=== PATIENT | female | born 1985 | race Caucasian/White ===

== ENCOUNTER 2020-06-08 06:42 | Inpatient (IN) ==
--- NOTE | 2020-06-01 13:50 | Anesthesiology Consultation ---
Date of Service June 01, 2020 Assessment & Plan (1) Encounter for pre-operative examination: Per PAT assessment on 06/01: Travel screen- Lives in [facility]. Wears mask in public. No known COVID-19 positive contacts. No current COVID-19 related symptoms. Patient scheduled for preop protocol COVID-19 testing on 06/06 ([facility] Awaiting results. - Suboxone use: Case reviewed with Dr. Vasquez. Recommend patient continue suboxone as directed perioperatively. T/C TAP block. He states he will review case with Dr. Gold who will be anesthesiologist scheduled for DOS. - *Claustrophobic* Chart Review Chart Review: Acceptable Risk for Surgery (pending preop labs) and Patient seen in Pre Admission Testing Teaching & Discussion Pre-Anesthesia Teaching/Discussion Notes: Instructed NPO after midnight before surgery,except medications with 15 cc of water. Medication instructions provided according to the PAT guidelines. History Surgery Operation Date: 06/08/20 07:30 Proposed Procedures p Section in LD - Re Levi MD s Bilateral Tubal Ligation in L&D, Possible Blood Transfusion - Re Brantley MD Height/Weight Height: 5 ft 7.5 in Weight: 103.419 kg Allergies Allergy/AdvReac Type Severity Reaction Status Date / Time No Known Allergies Allergy . Verified 06/01/20 09:05 Medications Home Medications Medication Instructions Recorded Confirmed Last Taken sertraline 150 mg PO USEASDIRECTD 03/15/20 06/01/20 Unknown buprenorphine HCl 8 mg SUBLINGUAL UD 05/20/20 06/01/20 05/20/20 09:30 nicotine 21 mg TOPICAL 3XWK 05/20/20 06/01/20 Unknown PNV cmb#95-ferrous fumarate-FA 1 tab PO DAILY 06/01/20 06/01/20 Unknown [] albuterol sulfate 1 inh INHALATION QID PRN 06/01/20 06/01/20 Unknown ferrous sulfate 325 mg PO TID 06/01/20 06/01/20 Unknown Past Medical History Medical History Anemia Anxiety and depression Post traumatic stress disorder Exercise / Class Metabolic Activity III < 4 Walking/Shop/Light housework Past Family History Family History Grandmother (Maternal) Family history of diabetes mellitus Past Surgical History Surgical History (Updated 06/01/20 @ 14:57 by Gayatri Gambino) History of section (d/t distress): 04/16/09: dosed epidural Repeat : 10/25/16: SAB x1 attempt at L3-L4 History of tooth extraction Past Anesthesia History No Hx of Anesthesia Complications and No Family Hx of Anesthesia Complications History of PONV No Hx of PONV and Hx of Motion Sickness Social History Smoking Status: Current every day smoker tobacco type: cigarettes Smoking cigarettes per day: 10-15 CIG DAILY Do You Dip or Chew Tobacco: No Hx Alcohol Use: No Hx Substance Use: Yes (on suboxone daily (hx of opiod dependence) ) Review of Systems Patient denies chest pain, shortness of breath fever, chills, reflux, cough, wheezing, palpitations. Testing Laboratory Results 05/20/20 SODIUM 136 POTASSIUM 3.6 CHLORIDE 105 CO2 24 BUN 8 CREATININE 0.69 GLUCOSE 115 PT 10.1 PTT 26.8 INR 1.0 03/15/20 T&S A-Ab- Electrocardiogram Date: 05/20/20 NSR at 92bpm. Poor data quality* Chest X-Ray Date: 03/15/20 Findings: + NAD
--- NOTE | 2020-06-01 13:53 | PAT Medication Instructions ---
Medication Instructions Date of Service June 01, 2020 Home Medications sertraline 150 mg PO USEASDIRECTD buprenorphine HCl 8 mg SUBLINGUAL UD nicotine 21 mg TOPICAL 3XWK PNV cmb#95-ferrous fumarate-FA [] 1 tab PO DAILY albuterol sulfate 1 inh INHALATION QID PRN ferrous sulfate 325 mg PO TID Continue as directed nicotine 21 mg TOPICAL 3XWK DO NOT take the morning of surgery PNV cmb#95-ferrous fumarate-FA [] 1 tab PO DAILY ferrous sulfate 325 mg PO TID Take morning of surgery With a small sip of water, OTHERWISE NOTHING TO EAT OR DRINK AFTER MIDNIGHT: sertraline 150 mg PO USEASDIRECTD buprenorphine HCl 8 mg SUBLINGUAL UD albuterol sulfate 1 inh INHALATION QID PRN (use if needed; please bring with you to hospital day of surgery if possible) Take evening before surgery albuterol sulfate 1 inh INHALATION QID PRN (if needed) ferrous sulfate 325 mg PO TID Other Notes If you have any questions please call us at [phone] or [phone] or or [phone]
[2020-06-01 16:15] LABS: Appearance Urine Clear (Clear); Bilirubin Urine Negative (Negative); Blood Urine Negative (Negative); Color Urine Dark Yellow; Glucose Urine UA Negative (Negative); Ketones Urine Negative (Negative); Leukocyte Esterase Urine Negative (Negative); Nitrite Urine Negative (Negative); Protein Urine Negative (Negative); Specific Gravity Urine 1.031 (1.000-1.030); Urobilinogen Urine Negative (Negative)
[2020-06-01 16:43] LABS: Anisocytosis Present; Basophils # (auto) 0.05 K/uL (0-0.2); Basophils % (auto) 0.3 %; Eosinophils % (auto) 1.1 %; Hematocrit (blood only) 29.8 % (37-47); Hemoglobin 8.5 g/dL (12.0-16.0); Immature Granulocytes # (auto) 0.19 K/uL (0.00-0.02); Lymphocytes # (auto) 3.01 K/uL (1.2-3.4); Lymphocytes % (auto) 16.4 %; Mean Corpuscular Hemoglobin 20.1 pg (25-34); Mean Corpuscular Hgb Conc 28.5 g/dL (32-36); Mean Corpuscular Volume 70.6 fL (80-100); Monocytes # (auto) 1.55 K/uL (0.11-0.59); Monocytes % (auto) 8.4 %; Neutrophils # (auto) 13.38 K/uL (1.4-6.5); Neutrophils % (auto) 72.8 %; Nucleated RBC # (auto) 0.19 K/uL (0-0); Platelet Count 240 K/uL (130-400); RDW Coefficient of Variation 24.9 % (11.5-14.5); RDW Standard Deviation 50.9 fL (36.4-46.3); Red Blood Count 4.22 M/uL (4.2-5.4); Schistocytes 1+; Spherocytes 1+; White Blood Count 18.38 K/uL (4.8-10.8)
[~2020-06-08 06:42] MED LIST: CEFAZOLIN 3,000 MG in DEXTROSE 5% 50 ML IV SCH; CITRIC ACID/SODIUM CITRATE 15 ML UDC PO SCH; LACTATED RINGER'S 1,000 ML IV SCH
[2020-06-08] MEDS ORDERED: SODIUM CHLORIDE 0.9% 250 ML IV PRN (06:44)
[2020-06-08] MEDS ORDERED: LACTATED RINGER'S 1,000 ML IV SCH ×2 (06:45→09:45)
[2020-06-08 07:19] LABS: Basophils # (auto) 0.04 K/uL (0-0.2); Basophils % (auto) 0.3 %; Eosinophils % (auto) 1.4 %; Hematocrit (blood only) 34.8 % (37-47); Hemoglobin 10.3 g/dL (12.0-16.0); Immature Granulocytes # (auto) 0.09 K/uL (0.00-0.02); Immature Granulocytes % (auto) 0.6 %; Lymphocytes # (auto) 2.72 K/uL (1.2-3.4); Lymphocytes % (auto) 18.8 %; Mean Corpuscular Hemoglobin 22.4 pg (25-34); Mean Corpuscular Volume 75.7 fL (80-100); Monocytes # (auto) 1.25 K/uL (0.11-0.59); Monocytes % (auto) 8.6 %; Neutrophils # (auto) 10.16 K/uL (1.4-6.5); Neutrophils % (auto) 70.3 %; Platelet Count 259 K/uL (130-400); RDW Coefficient of Variation 33.3 % (11.5-14.5); RDW Standard Deviation 85.5 fL (36.4-46.3); White Blood Count 14.46 K/uL (4.8-10.8)
[2020-06-08 07:24] LABS: Mean Corpuscular Hgb Conc 29.6 g/dL (32-36)
[2020-06-08 07:38] LABS: Anisocytosis Present
[2020-06-08] MEDS ORDERED: MoRPHine SULFATE PF 1 MG/ML 10 ML AMP/VIAL ONE (07:55)
[2020-06-08] MEDS ORDERED: fentaNYL citrate 100 MCG/2 ML VIAL ONE (07:55)
--- NOTE | 2020-06-08 07:55 | History & Physical Bridge Note ---
Date of Service June 08, 2020 History & Physical Bridge Note I have examined the patient, reviewed the History & Physical and in the interval since the performance of the History & Physical I have noted the following changes of clinical significance: no changes noted Reports good movements Still desires tubal sterilization
[2020-06-08 08:11] LABS: Rubella IgG Antibody Immune (Immune)
[2020-06-08 08:12] LABS: Hepatitis B Surface Antigen Neg (Neg)
[2020-06-08] MEDS ORDERED: KETOROLAC 30 MG/ML VIAL ONE (08:59)
[2020-06-08] MEDS ORDERED: OXYTOCIN 10 UNITS/ML VIAL ONE (09:23)
[2020-06-08] MEDS ORDERED: ONDANSETRON INJ 2 MG/ML 2 ML VIAL ONE (09:24)
[2020-06-08] MEDS ORDERED: PHENYLEPHRINE 100MCG/ML 5ML SYR ONE (09:24)
[2020-06-08] MEDS ORDERED: BENZOCAINE 20% AER SPR 82.5 GM CAN EXT PRN (09:42)
[2020-06-08] MEDS ORDERED: MEASLES, MUMPS & RUBELLA VIRUS VIAL SQ ONE (09:42)
[2020-06-08] MEDS ORDERED: HYDROCORTISONE ACETATE 25 MG SUPP PR PRN (09:42)
[2020-06-08] MEDS ORDERED: DIPHTHERIA/TETANUS/PERTUSSIS 0.5 ML SYR/VIAL IM ONE (09:42)
[2020-06-08] MEDS ORDERED: SUPERCREAM 0.870% 15 GM JAR EXT PRN (09:42)
[2020-06-08] MEDS ORDERED: SENNA 8.6 MG TAB PO PRN (09:42)
[2020-06-08] MEDS ORDERED: MAGNESIUM HYDROXIDE SUSP 30 ML UDC PO PRN (09:42)
--- NOTE | 2020-06-08 09:42 | Post Operative Brief Note ---
Immediate Post Op Note v1 Date of Surgery June 08, 2020 Pre & Post Diagnosis Operation Date: 06/08/20 07:30 Pre-Op Diagnosis: History of Prior Two Deliveries Post-Op Diagnosis: Same; Delivery of a live male child at 0846 I identified the patient and participated in the time-out.: Yes Procedure Operation Date: 06/08/20 07:30 Actual Procedures p Section; - Re Levi MD s Bilateral Tubal Ligation, Possible Blood Transfusion - Re Levi MD Surgeon Re Levi MD Hot Plate Press Operator Dr Bey Estimated Blood Loss 600 Findings Consistent with Post-Op Diagnosis Drains Hernandez Catheter Anesthesia Type Spinal Complications none Disposition Accompanied Patient To Recovery: Yes Disposition: L&D
--- NOTE | 2020-06-08 09:42 | History & Physical Bridge Note ---
Date of Service June 08, 2020 History & Physical Bridge Note I have examined the patient, reviewed the History & Physical and in the interval since the performance of the History & Physical I have noted the following changes of clinical significance: no changes noted
[2020-06-08] MEDS ORDERED: HYDROmorphone INJ 0.5 MG/0.5 ML SYR IV PRN ×2 (09:58→12:18)
[2020-06-08] MEDS ORDERED: MoRPHine SULFATE PF 1 MG/ML 10 ML AMP/VIAL INT SPINAL ONE (09:58)
[2020-06-08] MEDS ORDERED: NALOXONE HCL 0.4 MG/1 ML VIAL/CARP IV PRN (09:58)
[2020-06-08] MEDS ORDERED: NALOXONE HCL 0.08 MG in SYRINGE 1.8 ML IV PRN (09:58)
[2020-06-08] MEDS ORDERED: NALOXONE HCL 1 MG in SODIUM CHLORIDE 0.9% 1000ML 1,000 ML IV PRN (09:58)
[2020-06-08] MEDS ORDERED: ePHEDrine sulfate 50 MG/ML AMP IV PRN (09:58)
[2020-06-08] MEDS ORDERED: ONDANSETRON INJ 2 MG/ML 2 ML VIAL IV PRN (09:58)
[2020-06-08] MEDS ORDERED: DiphenhydrAMINE HCL 50 MG/ML VIAL IV PRN (09:58)
[2020-06-08] MEDS ORDERED: LACTATED RINGER'S 500 ML IV PRN (09:58)
[2020-06-08] MEDS ORDERED: NO NARCOTICS OR SEDATIVES SCH (10:00)
[2020-06-08] MEDS ORDERED: SODIUM CHLORIDE 0.9% 1000ML 1,000 ML IV SCH (10:00)
[2020-06-08] MEDS ORDERED: DC INTRASPINAL MORPHINE SCH (10:00)
--- NOTE | 2020-06-08 10:08 | Anesthesiology Progress Note ---
Date of Service June 08, 2020 Anesthesia Post Procedure Vital Signs Vital Signs: Temp Pulse Pulse Resp BP BP Pulse Ox 06/08/20 10:05 73 114/77 98 06/08/20 10:00 76 98 06/08/20 09:57 78 120/63 06/08/20 09:55 83 97 06/08/20 09:50 80 100 06/08/20 09:45 78 100 06/08/20 09:44 79 124/64 06/08/20 07:35 36.6 C 89 20 128/82 06/08/20 07:03 89 128/82 Transfer of Care Handoff Completed per policy Notes Mental Status: alert / awake / arousable and participated in evaluation Nausea / Vomiting: adequately controlled Pain: adequately controlled Airway Patency, RR, SpO2: stable & adequate BP & HR: stable & adequate Hydration State: stable & adequate Neuraxial Anesthesia: was administered and sensory block is resolving Anesthetic Complications: no major complications apparent and Pt Satisfied with anesthetic care
--- NOTE | 2020-06-08 11:47 | Operative Report (OR) ---
DATE OF OPERATION: 06/08/2020 PREOPERATIVE DIAGNOSES: The patient is a 35-year-old 3, para 2-0-0-2, at 39 weeks and 1 day of gestation with history of prior 2 sections, multiparity, desires permanent sterilization. POSTOPERATIVE DIAGNOSES: The patient is a 35-year-old 3, para 2-0-0-2, at 39 weeks and 1 day of gestation with history of prior 2 sections, multiparity, desires permanent sterilization. PROCEDURE: Repeat low transverse with Pfannenstiel skin incision and lysis of adhesions and bilateral tubal ligation with Whitehall method. SURGEON: Re Levi MD. VIBRATORY PILE DRIVER: Ronald Bey MD. ESTIMATED BLOOD LOSS: 600 mL. FLUIDS: 850 mL of lactated Ringer. DRAINS: Hernandez catheter drained 150 mL of clear urine. ANESTHESIA: Spinal. ANESTHESIOLOGIST: Dr. Gold. COMPLICATIONS: None. FINDINGS: Baby was a viable male delivered in cephalic presentation at 08:46 a.m. Apgars were 9/9, weight is 3355 grams. Maternal findings: There was adhesion, omentum was attached to the anterior abdominal wall of the peritoneum and some scarring in the subcuticular tissue and fascia. The uterus, fallopian tubes, ovaries were normal. DESCRIPTION OF PROCEDURE: The patient was taken to the operating room where spinal anesthesia was given without difficulty. She was placed in dorsal supine position with a leftward tilt. She was prepared and draped in the usual sterile fashion. A Pfannenstiel skin incision was made and carried through to the underlying layer of fascia with the Bovie. Fascia was incised in the midline and incision was extended laterally with the help of Ellis scissors. There was an opening/ window between rectus muscles/ on the peritoneum in the middle of the fascial incision on the lower side and the omentum was protruding from there. Lower fascial edge was grasped with 2 Sofía clamps, elevated. The rectus muscles were dissected off bluntly and sharply with Ellis scissors. Attention was made yevgeniy there were no loops of bowels behind and the ometum was gently retracted from the field. Upper aspect of the fascial incision was then grasped with 2 Sofía clamps, elevated, underlying rectus muscles were dissected sharply and bluntly, and the rectus muscles were already in the midline. The peritoneal incision was extended superiorly and inferiorly with good visualization of the bladder and attention was made that there was no bowel underlying it. Omentum was detached from the anterior abdominal wall with the tip of Bovie and it was hemostatic. A bladder blade was inserted. Vesicouterine peritoneum was identified, grasped with pickups and entered sharply with Metzenbaum scissors and a bladder flap was created digitally and bladder blade was reinserted. Lower uterine segment was incised in transverse fashion, incision was extended laterally with the help of fingers. Membranes were ruptured. Clear fluid was obtained. Baby's head was delivered without difficulty. Shoulders were delivered with minimal traction. Mouth and nose were suctioned. Cord was clamped x2 and cut at 1 minute delay. Cord blood was obtained. Placenta was delivered manually as intact and complete. Uterus was exteriorized, cleared of all clots and debris. The uterine incision was repaired with 0 Vicryl in a running locked fashion and a second imbricating layer was placed with a 0 Vicryl in a running locked fashion. Excellent hemostasis was achieved. Attention was turned to the right fallopian tube. It was held with 2 Payson clamps and the mesosalpinx was entered with a 2-0 plain catgut needle in the avascular section. The cord was tied around the Payson and a loop was made and the second tie was placed under the first tie and cut and then the fallopian tube was incised, about 3 cm length was excised and sent to pathology. Good hemostasis was achieved. Attention was turned to the left fallopian tube, which was also grasped with 2 Josef clamps, elevated, and the mesosalpinx was entered from the avascular site with 2-0 plain catgut. The tube was tied and a loop was made around the clamp and then a second tie was placed under the first tie and then again 3 cm length of fallopian tube was excised and sent to pathology, and excellent hemostasis was achieved. The uterine incision was checked again and it was hemostatic. Uterus was returned to the abdomen. The pelvis was irrigated with warm normal saline and suctioned, and incision was checked to be hemostatic again and fallopian tubes were checked to be hemostatic. In parietal peritoneum, there was another adhesion on the omental side. It was also incised with the tip of Bovie from the peritoneum and it was hemostatic. It was returned to the abdomen. The parietal peritoneum was reapproximated with 3-0 Vicryl in a running fashion and the rectus muscles were reapproximated with the same suture in a running fashion. Excellent hemostasis was achieved under the fascia, and over the rectus muscles. The rectus fascia was reapproximated with 0 Vicryl starting from both corners meeting in the midline, and the subcuticular fat tissue was brought together with 3-0 Vicryl in a running fashion. Skin was closed in a subcuticular fashion with 4-0 Monocryl. Mom and baby tolerated the procedure well. No complications happened. I was present and Dr. Bey was present during whole procedure. Sponge, lap, needle count was correct x3. She was taken to recovery room in stable condition. My nutrition assistant was necessary throughout the procedure for uterine manipulation, handling of instruments to ensure adequate visualization, gentle tissue manipulation and hemostasis. I attest to the content of the Intraoperative Record and any orders documented therein. Any exceptions are noted below. REGULO
[2020-06-08] MEDS: OXYTOCIN 20 UNITS in LACTATED RINGER'S 1,000 ML IV SCH ×2 (11:51→21:09)
[2020-06-08] MEDS ORDERED: HYDROmorphone INJ 0.5 MG/0.5 ML SYR IV STA (12:18)
[2020-06-08] MEDS ORDERED: ACETAMINOPHEN 1000 MG/100 ML IV IV SCH ×2 (12:30→14:00)
[2020-06-08] MEDS: ACETAMINOPHEN 1,000 MG/100 ML VIAL IV SCH ×2 (12:33→21:11)
[2020-06-08] MEDS: SIMETHICONE 80 MG CHEW PO SCH ×3 (14:49→21:10)
--- NOTE | 2020-06-08 14:56 | Anesthesiology Progress Note ---
Date of Service June 08, 2020 Anesthesia Post Procedure Vital Signs Vital Signs: Temp Pulse Pulse Resp BP BP Pulse Ox 06/08/20 12:15 73 118/67 96 06/08/20 12:12 79 94 06/08/20 12:10 80 95 06/08/20 12:05 84 128/73 97 06/08/20 12:03 85 92 06/08/20 12:00 79 96 06/08/20 11:55 75 146/67 H 95 06/08/20 11:53 77 94 06/08/20 11:50 78 95 06/08/20 11:45 78 20 130/67 97 06/08/20 11:40 84 97 06/08/20 11:35 78 120/61 96 06/08/20 11:30 79 97 06/08/20 11:25 78 127/59 L 96 06/08/20 11:20 83 99 06/08/20 11:15 81 20 96 06/08/20 11:10 80 98 06/08/20 11:05 84 144/74 H 98 06/08/20 11:00 99 H 99 06/08/20 10:55 83 134/72 96 06/08/20 10:50 80 96 06/08/20 10:45 85 20 138/73 97 06/08/20 10:40 88 97 06/08/20 10:35 76 18 131/67 99 06/08/20 10:30 76 98 06/08/20 10:25 79 18 133/70 99 06/08/20 10:20 80 98 06/08/20 10:15 78 18 115/71 99 06/08/20 10:10 76 97 06/08/20 10:05 84 18 114/77 100 06/08/20 10:00 76 98 06/08/20 09:57 78 120/63 06/08/20 09:55 74 18 120/63 98 06/08/20 09:50 80 100 06/08/20 09:45 36.4 C L 80 18 124/64 100 06/08/20 09:44 79 124/64 06/08/20 07:35 36.6 C 89 20 128/82 06/08/20 07:03 89 128/82 Pain Intensity Medial Abdomen: Pain Intensity: 6 Transfer of Care Handoff Completed per policy Notes Mental Status: alert / awake / arousable and participated in evaluation Nausea / Vomiting: adequately controlled Pain: adequately controlled Airway Patency, RR, SpO2: stable & adequate BP & HR: stable & adequate Hydration State: stable & adequate Neuraxial Anesthesia: was administered and sensory block resolved Anesthetic Complications: no major complications apparent and Pt Satisfied with anesthetic care Notes: Patient with full strength and sensation in legs bilaterally. Ok to get up with assist from nursing staff at this time.
[2020-06-08] MEDS: KETOROLAC 30 MG/ML VIAL IV SCH ×2 (15:44→21:26)
[2020-06-08] MEDS: DOCUSATE SODIUM 100 MG CAP PO SCH (21:11)
[2020-06-08] MEDS: NICOTINE 7 MG/24 HR TDSY TD SCH (21:30)
[2020-06-08] MEDS ORDERED: SERTRALINE HCL 50 MG TABLET PO ONE (23:33)
[2020-06-09] MEDS: KETOROLAC 30 MG/ML VIAL IV SCH (03:12)
[2020-06-09] MEDS ORDERED: ONDANSETRON INJ 2 MG/ML 2 ML VIAL IV PRN (04:01)
[2020-06-09] MEDS ORDERED: KETOROLAC 30 MG/ML VIAL IV PRN (04:01)
[2020-06-09] MEDS ORDERED: DiphenhydrAMINE HCL 50 MG/ML VIAL IV PRN (04:01)
[2020-06-09] MEDS ORDERED: PROMETHAZINE HCL 25 MG in SODIUM CHLORIDE 0.9% 50 ML IV PRN (04:01)
[2020-06-09] MEDS: ACETAMINOPHEN 1,000 MG/100 ML VIAL IV SCH (05:15)
[2020-06-09] MEDS ORDERED: CITRIC ACID/SODIUM CITRATE 15 ML UDC PO SCH (06:00)
[2020-06-09 06:26] LABS: Basophils # (auto) 0.04 K/uL (0-0.2); Basophils % (auto) 0.3 %; Eosinophils # (auto) 0.27 K/uL (0-0.5); Eosinophils % (auto) 1.8 %; Hematocrit (blood only) 33.4 % (37-47); Hemoglobin 9.7 g/dL (12.0-16.0); Immature Granulocytes # (auto) 0.07 K/uL (0.00-0.02); Immature Granulocytes % (auto) 0.5 %; Lymphocytes # (auto) 2.97 K/uL (1.2-3.4); Lymphocytes % (auto) 19.9 %; Mean Corpuscular Hemoglobin 22.5 pg (25-34); Mean Corpuscular Volume 77.5 fL (80-100); Monocytes # (auto) 1.02 K/uL (0.11-0.59); Monocytes % (auto) 6.8 %; Neutrophils # (auto) 10.55 K/uL (1.4-6.5); Neutrophils % (auto) 70.7 %; Platelet Count 259 K/uL (130-400); Red Blood Count 4.31 M/uL (4.2-5.4); White Blood Count 14.92 K/uL (4.8-10.8)
--- NOTE | 2020-06-09 06:33 | Anesthesiology Progress Note ---
Date of Service June 09, 2020 Anesthesia Post Procedure Vital Signs Vital Signs: Temp Pulse Pulse Resp BP BP Pulse Ox 06/09/20 03:35 16 98 06/09/20 03:15 36.5 C 81 17 132/83 97 06/09/20 02:35 16 99 06/09/20 01:35 16 97 06/09/20 00:35 16 98 06/08/20 23:55 36.4 C L 75 17 138/80 99 06/08/20 22:40 18 98 06/08/20 21:40 20 97 06/08/20 20:45 18 06/08/20 19:47 36.8 C 74 18 124/76 98 06/08/20 18:50 18 97 06/08/20 17:57 18 98 06/08/20 17:00 18 97 06/08/20 15:44 36.7 C 72 16 127/75 95 06/08/20 14:00 16 95 06/08/20 12:50 36.6 C 84 18 125/62 94 06/08/20 12:15 73 118/67 96 06/08/20 12:12 79 94 06/08/20 12:10 80 95 06/08/20 12:05 84 128/73 97 06/08/20 12:03 85 92 06/08/20 12:00 79 96 06/08/20 11:55 75 146/67 H 95 06/08/20 11:53 77 94 06/08/20 11:50 78 95 06/08/20 11:45 78 20 130/67 97 06/08/20 11:40 84 97 06/08/20 11:35 78 120/61 96 06/08/20 11:30 79 97 06/08/20 11:25 78 127/59 L 96 06/08/20 11:20 83 99 06/08/20 11:15 81 20 96 06/08/20 11:10 80 98 06/08/20 11:05 84 144/74 H 98 06/08/20 11:00 99 H 99 06/08/20 10:55 83 134/72 96 06/08/20 10:50 80 96 06/08/20 10:45 85 20 138/73 97 06/08/20 10:40 88 97 06/08/20 10:35 76 18 131/67 99 06/08/20 10:30 76 98 06/08/20 10:25 79 18 133/70 99 06/08/20 10:20 80 98 06/08/20 10:15 78 18 115/71 99 06/08/20 10:10 76 97 06/08/20 10:05 84 18 114/77 100 06/08/20 10:00 76 98 06/08/20 09:57 78 120/63 06/08/20 09:55 74 18 120/63 98 06/08/20 09:50 80 100 06/08/20 09:45 36.4 C L 80 18 124/64 100 06/08/20 09:44 79 124/64 06/08/20 07:35 36.6 C 89 20 128/82 06/08/20 07:03 89 128/82 Pulse Ox 06/09/20 03:35 06/09/20 03:15 06/09/20 02:35 06/09/20 01:35 06/09/20 00:35 06/08/20 23:55 06/08/20 22:40 06/08/20 21:40 06/08/20 20:45 06/08/20 19:47 06/08/20 18:50 06/08/20 17:57 06/08/20 17:00 06/08/20 15:44 95 06/08/20 14:00 06/08/20 12:50 94 06/08/20 12:15 06/08/20 12:12 06/08/20 12:10 06/08/20 12:05 06/08/20 12:03 06/08/20 12:00 06/08/20 11:55 06/08/20 11:53 06/08/20 11:50 06/08/20 11:45 06/08/20 11:40 06/08/20 11:35 06/08/20 11:30 06/08/20 11:25 06/08/20 11:20 06/08/20 11:15 06/08/20 11:10 06/08/20 11:05 06/08/20 11:00 06/08/20 10:55 06/08/20 10:50 06/08/20 10:45 06/08/20 10:40 06/08/20 10:35 06/08/20 10:30 06/08/20 10:25 06/08/20 10:20 06/08/20 10:15 06/08/20 10:10 06/08/20 10:05 06/08/20 10:00 06/08/20 09:57 06/08/20 09:55 06/08/20 09:50 06/08/20 09:45 06/08/20 09:44 06/08/20 07:35 06/08/20 07:03 Pain Intensity Medial Abdomen: Pain Intensity: 5 Transfer of Care Handoff Completed per policy Notes Mental Status: alert / awake / arousable and participated in evaluation Patient Amnestic to Procedure: Yes Nausea / Vomiting: adequately controlled Pain: adequately controlled Airway Patency, RR, SpO2: stable & adequate BP & HR: stable & adequate Hydration State: stable & adequate Neuraxial Anesthesia: was administered and sensory block resolved Anesthetic Complications: no major complications apparent and Pt Satisfied with anesthetic care Notes: Patient denies headache this morning. Has been up walking without weakness or residual numbness. Patient encouraged to contact anesthesia for any concerns or new headache
[2020-06-09 06:46] LABS: Anisocytosis Present; Hypochromasia Present; Polychromasia 1+
[2020-06-09] MEDS ORDERED: buprenorphine HCL 2 MG SUBL SL SCH (09:00)
[2020-06-09] MEDS: PRENATAL VITAMIN 1 TAB PO SCH (09:01)
[2020-06-09] MEDS: OXYCODONE/ACETAMINOPHEN 5mg/325mg TAB PO PRN ×4 (09:01→20:29)
[2020-06-09] MEDS: FERROUS SULFATE 325 MG TAB PO SCH (09:02)
[2020-06-09] MEDS: SIMETHICONE 80 MG CHEW PO SCH ×4 (09:02→20:19)
[2020-06-09] MEDS: DOCUSATE SODIUM 100 MG CAP PO SCH ×2 (09:03→20:19)
[2020-06-09] MEDS: AMOXICILLIN 500 MG CAP PO SCH ×3 (09:03→20:19)
[2020-06-09] MEDS: IBUPROFEN 600 MG TAB PO PRN ×4 (09:03→20:28)
[2020-06-09] MEDS: NICOTINE 7 MG/24 HR TDSY TD SCH (09:06)
--- NOTE | 2020-06-09 09:19 | Surgery Progress Note ---
Date of Service June 09, 2020 Subjective POD#1 doing well passing gas out of bed noe diet Physical Exam Constitutional: WD/WN, vitals as above comfortable abdomen soft and non- tender incision c/d/i no edema neg Harinder's will advance diet/care Results & Data Vital Signs (Past 12 Hours) Vital Signs Temp Pulse Resp BP Pulse Ox 06/09/20 07:20 36.8 C 73 18 130/80 99 06/09/20 03:35 16 98 06/09/20 03:15 36.5 C 81 17 132/83 97 06/09/20 02:35 16 99 06/09/20 01:35 16 97 06/09/20 00:35 16 98 06/08/20 23:55 36.4 C L 75 17 138/80 99 06/08/20 22:40 18 98 06/08/20 21:40 20 97 Laboratory Results Laboratory Results - last 72 hr 06/08/20 06/08/20 06/08/20 07:04 07:04 07:04 WBC 14.46 H RBC 4.60 Hgb 10.3 L Hct 34.8 L MCV 75.7 L MCH 22.4 L MCHC 29.6 L RDW Std Deviation 85.5 H RDW Coeff of Taylor 33.3 H Plt Count 259 Immature Gran % (Auto) 0.6 Neut % (Auto) 70.3 Lymph % (Auto) 18.8 [place] % (Auto) 8.6 Eos % (Auto) 1.4 Baso % (Auto) 0.3 Neut # (Auto) 10.16 H Lymph # (Auto) 2.72 [place] # (Auto) 1.25 H Eos # (Auto) 0.20 Baso # (Auto) 0.04 Immature Gran # (Auto) 0.09 H Polychromasia Hypochromasia Anisocytosis Present RPR Hep Bs Antigen Neg HIV 1&2 Ab/P24 Ag 4thGn Rubella IgG Antibody Immune Blood Type A Negative Antibody Screen NEGATIVE Screen Crossmatch See Detail 06/08/20 06/08/20 06/09/20 07:04 07:04 06:13 WBC RBC Hgb Hct MCV MCH MCHC RDW Std Deviation RDW Coeff of Taylor Plt Count Immature Gran % (Auto) Neut % (Auto) Lymph % (Auto) [place] % (Auto) Eos % (Auto) Baso % (Auto) Neut # (Auto) Lymph # (Auto) [place] # (Auto) Eos # (Auto) Baso # (Auto) Immature Gran # (Auto) Polychromasia Hypochromasia Anisocytosis RPR Nonreactive Hep Bs Antigen HIV 1&2 Ab/P24 Ag 4thGn Neg Rubella IgG Antibody Blood Type A Negative Antibody Screen Cancelled Screen Negative Crossmatch 06/09/20 06:13 WBC 14.92 H RBC 4.31 Hgb 9.7 L Hct 33.4 L MCV 77.5 L MCH 22.5 L MCHC 29.0 L RDW Std Deviation RDW Coeff of Taylor Plt Count 259 Immature Gran % (Auto) 0.5 Neut % (Auto) 70.7 Lymph % (Auto) 19.9 [place] % (Auto) 6.8 Eos % (Auto) 1.8 Baso % (Auto) 0.3 Neut # (Auto) 10.55 H Lymph # (Auto) 2.97 [place] # (Auto) 1.02 H Eos # (Auto) 0.27 Baso # (Auto) 0.04 Immature Gran # (Auto) 0.07 H Polychromasia 1+ Hypochromasia Present Anisocytosis Present RPR Hep Bs Antigen HIV 1&2 Ab/P24 Ag 4thGn Rubella IgG Antibody Blood Type Antibody Screen Screen Crossmatch
[2020-06-09] MEDS: buprenorphine HCL 2 MG SUBL SL SCH (19:48)
[2020-06-09] MEDS ORDERED: bisacodyL 5 MG TABEC PO SCH (20:00)
[2020-06-10] MEDS: IBUPROFEN 600 MG TAB PO PRN ×2 (06:37→10:39)
[2020-06-10] MEDS: OXYCODONE/ACETAMINOPHEN 5mg/325mg TAB PO PRN ×2 (06:37→10:39)
[2020-06-10 06:38] LABS: Hematocrit (blood only) 34.4 % (37-47)
--- NOTE | 2020-06-10 08:34 | Obstetrical Progress Note ---
Date of Service June 10, 2020 Assessment & Plan Admission and Anticipated Discharge Date Admission Date: June 08, 2020 Subjective Patient is seen and examined. She feels well, no complaints. Pain is under control with oral meds. Ambulating without dizziness Voiding without difficulty Tolerating regular diet with out N&V Flatus + BM about to go Bleeding is minimal No fever/ chills/ CP/ SOB/ N&V/ Leg pain Bottle feeding without problems Vital Signs Temp Pulse Pulse Resp BP BP Pulse Ox 06/10/20 00:25 36.6 C 70 17 133/83 99 06/09/20 16:00 36.7 C 74 16 128/85 98 06/09/20 12:30 36.6 C 82 16 140/83 99 06/09/20 10:15 36.8 C 73 18 118/67 99 Lab Results 06/01/20 06/01/20 06/01/20 Range/Units 14:35 14:35 14:35 WBC 18.38 H (4.8-10.8) K/uL RBC 4.22 (4.2-5.4) M/uL Hgb 8.5 L (12.0-16.0) g/dL Hct 29.8 L (37-47) % MCV 70.6 L (80-100) fL MCH 20.1 L (25-34) pg MCHC 28.5 L (32-36) g/dL RDW Std Deviation 50.9 H (36.4-46.3) fL RDW Coeff of Taylor 24.9 H (11.5-14.5) % Plt Count 240 (130-400) K/uL Immature Gran % (Auto) 1.0 % Neut % (Auto) 72.8 % Lymph % (Auto) 16.4 % [place] % (Auto) 8.4 % Eos % (Auto) 1.1 % Baso % (Auto) 0.3 % Neut # (Auto) 13.38 H (1.4-6.5) K/uL Lymph # (Auto) 3.01 (1.2-3.4) K/uL [place] # (Auto) 1.55 H (0.11-0.59) K/uL Eos # (Auto) 0.20 (0-0.5) K/uL Baso # (Auto) 0.05 (0-0.2) K/uL Immature Gran # (Auto) 0.19 H (0.00-0.02) K/uL Absolute Nucleated RBC 0.19 H (0-0) K/uL Nucleated RBC % (auto) 1.0 % Polychromasia Hypochromasia Anisocytosis Present Spherocytes 1+ Schistocytes 1+ Urine Color Dark Yellow Urine Appearance Clear (Clear) Urine pH 5.0 (4.5-7.5) Ur Specific [place] 1.031 H (1.000-1.030) Urine Protein Negative (Negative) Urine Glucose (UA) Negative (Negative) Urine Ketones Negative (Negative) Urine Blood Negative (Negative) Urine Nitrite Negative (Negative) Urine Bilirubin Negative (Negative) Urine Urobilinogen Negative (Negative) Ur Leukocyte Esterase Negative (Negative) RPR (Nonreactive) Hep Bs Antigen (Neg) HIV 1&2 Ab/P24 Ag 4thGn (Neg) Rubella IgG Antibody (Immune) Blood Type A Negative Antibody Screen NEGATIVE Screen (Negative) Crossmatch 06/08/20 06/08/20 06/08/20 Range/Units 07:04 07:04 07:04 WBC 14.46 H (4.8-10.8) K/uL RBC 4.60 (4.2-5.4) M/uL Hgb 10.3 L (12.0-16.0) g/dL Hct 34.8 L (37-47) % MCV 75.7 L (80-100) fL MCH 22.4 L (25-34) pg MCHC 29.6 L (32-36) g/dL RDW Std Deviation 85.5 H (36.4-46.3) fL RDW Coeff of Taylor 33.3 H (11.5-14.5) % Plt Count 259 (130-400) K/uL Immature Gran % (Auto) 0.6 % Neut % (Auto) 70.3 % Lymph % (Auto) 18.8 % [place] % (Auto) 8.6 % Eos % (Auto) 1.4 % Baso % (Auto) 0.3 % Neut # (Auto) 10.16 H (1.4-6.5) K/uL Lymph # (Auto) 2.72 (1.2-3.4) K/uL [place] # (Auto) 1.25 H (0.11-0.59) K/uL Eos # (Auto) 0.20 (0-0.5) K/uL Baso # (Auto) 0.04 (0-0.2) K/uL Immature Gran # (Auto) 0.09 H (0.00-0.02) K/uL Absolute Nucleated RBC (0-0) K/uL Nucleated RBC % (auto) % Polychromasia Hypochromasia Anisocytosis Present Spherocytes Schistocytes Urine Color Urine Appearance (Clear) Urine pH (4.5-7.5) Ur Specific [place] (1.000-1.030) Urine Protein (Negative) Urine Glucose (UA) (Negative) Urine Ketones (Negative) Urine Blood (Negative) Urine Nitrite (Negative) Urine Bilirubin (Negative) Urine Urobilinogen (Negative) Ur Leukocyte Esterase (Negative) RPR (Nonreactive) Hep Bs Antigen Neg (Neg) HIV 1&2 Ab/P24 Ag 4thGn (Neg) Rubella IgG Antibody Immune (Immune) Blood Type A Negative Antibody Screen NEGATIVE Screen (Negative) Crossmatch See Detail 06/08/20 06/08/20 06/09/20 Range/Units 07:04 07:04 06:13 WBC (4.8-10.8) K/uL RBC (4.2-5.4) M/uL Hgb (12.0-16.0) g/dL Hct (37-47) % MCV (80-100) fL MCH (25-34) pg MCHC (32-36) g/dL RDW Std Deviation (36.4-46.3) fL RDW Coeff of Taylor (11.5-14.5) % Plt Count (130-400) K/uL Immature Gran % (Auto) % Neut % (Auto) % Lymph % (Auto) % [place] % (Auto) % Eos % (Auto) % Baso % (Auto) % Neut # (Auto) (1.4-6.5) K/uL Lymph # (Auto) (1.2-3.4) K/uL [place] # (Auto) (0.11-0.59) K/uL Eos # (Auto) (0-0.5) K/uL Baso # (Auto) (0-0.2) K/uL Immature Gran # (Auto) (0.00-0.02) K/uL Absolute Nucleated RBC (0-0) K/uL Nucleated RBC % (auto) % Polychromasia Hypochromasia Anisocytosis Spherocytes Schistocytes Urine Color Urine Appearance (Clear) Urine pH (4.5-7.5) Ur Specific [place] (1.000-1.030) Urine Protein (Negative) Urine Glucose (UA) (Negative) Urine Ketones (Negative) Urine Blood (Negative) Urine Nitrite (Negative) Urine Bilirubin (Negative) Urine Urobilinogen (Negative) Ur Leukocyte Esterase (Negative) RPR Nonreactive (Nonreactive) Hep Bs Antigen (Neg) HIV 1&2 Ab/P24 Ag 4thGn Neg (Neg) Rubella IgG Antibody (Immune) Blood Type A Negative Antibody Screen Cancelled Screen Negative (Negative) Crossmatch 06/09/20 06/10/20 Range/Units 06:13 06:19 WBC 14.92 H (4.8-10.8) K/uL RBC 4.31 (4.2-5.4) M/uL Hgb 9.7 L 10.0 L (12.0-16.0) g/dL Hct 33.4 L 34.4 L (37-47) % MCV 77.5 L (80-100) fL MCH 22.5 L (25-34) pg MCHC 29.0 L (32-36) g/dL RDW Std Deviation (36.4-46.3) fL RDW Coeff of Taylor (11.5-14.5) % Plt Count 259 (130-400) K/uL Immature Gran % (Auto) 0.5 % Neut % (Auto) 70.7 % Lymph % (Auto) 19.9 % [place] % (Auto) 6.8 % Eos % (Auto) 1.8 % Baso % (Auto) 0.3 % Neut # (Auto) 10.55 H (1.4-6.5) K/uL Lymph # (Auto) 2.97 (1.2-3.4) K/uL [place] # (Auto) 1.02 H (0.11-0.59) K/uL Eos # (Auto) 0.27 (0-0.5) K/uL Baso # (Auto) 0.04 (0-0.2) K/uL Immature Gran # (Auto) 0.07 H (0.00-0.02) K/uL Absolute Nucleated RBC (0-0) K/uL Nucleated RBC % (auto) % Polychromasia 1+ Hypochromasia Present Anisocytosis Present Spherocytes Schistocytes Urine Color Urine Appearance (Clear) Urine pH (4.5-7.5) Ur Specific [place] (1.000-1.030) Urine Protein (Negative) Urine Glucose (UA) (Negative) Urine Ketones (Negative) Urine Blood (Negative) Urine Nitrite (Negative) Urine Bilirubin (Negative) Urine Urobilinogen (Negative) Ur Leukocyte Esterase (Negative) RPR (Nonreactive) Hep Bs Antigen (Neg) HIV 1&2 Ab/P24 Ag 4thGn (Neg) Rubella IgG Antibody (Immune) Blood Type Antibody Screen Screen (Negative) Crossmatch PE: General: Alert, orientedx3, NAD CVS: S1S2 RRR Lungs; CTAB Abd: soft, NT, ND, BS+, fundus firm, below Umbilicus Incision: Clean, dry, intact Perineum intact, Lochia rubra minimal Ext; NT, no edema AP: 35 yo s/p C Section, pod# 2 VSS Afebrile doing well Desires d/c today, has appointment with her doctor who will prescribe her Subutex Desires Percoset for pain Baby is staying Continue routine postop care Encourage ambulation, PO intake All questions were answered Discussed when to call D/C home , f/u in office Results & Data ([facility]) Vital Signs (Past 12 Hours) Vital Signs Temp Pulse Resp BP Pulse Ox 06/10/20 00:25 36.6 C 70 17 133/83 99
[2020-06-10] MEDS: SIMETHICONE 80 MG CHEW PO SCH (09:06)
[2020-06-10] MEDS: PRENATAL VITAMIN 1 TAB PO SCH (09:06)
[2020-06-10] MEDS: FERROUS SULFATE 325 MG TAB PO SCH (09:06)
[2020-06-10] MEDS: DOCUSATE SODIUM 100 MG CAP PO SCH (09:06)
[2020-06-10] MEDS: AMOXICILLIN 500 MG CAP PO SCH (09:07)
[2020-06-10] MEDS: buprenorphine HCL 2 MG SUBL SL SCH (09:08)
[2020-06-10] MEDS ORDERED: bisacodyL 10 MG SUPP PR PRN (09:42)
--- NOTE | 2020-06-13 13:18 | Discharge Summary (DS) ---
DETAILS OF ADMISSION: The patient is a 35-year-old G3, P2-0-0-2 at 39 weeks and 1 day gestation with a history of prior two C-sections and she desired permanent sterilization with repeat . She came in for scheduled repeat with bilateral tubal ligation and she had the surgery, delivered a viable male without any complications. See dictated op note for details. On postop period, the patient was doing well. Vital signs were stable, afebrile. Urine output was adequate. Hernandez was discontinued on day 1 and she was ambulated, tolerated a regular diet. Her repeat H&H came back at 9.7/33.4. On postop day 2, the patient was doing well. Vital signs stable, afebrile. Ambulating without dizziness, tolerating regular diet, passing gas and moving her bowels. Bottle feeding without problems. Vital signs were stable, afebrile. Urine output was good. She wanted to be discharged home on postop day #2. Baby was going to stay and she wanted to stay as a nesting mom. Her repeat H&H was 10.0/34.4. Discharge instructions were given when to call, prescriptions were written for pain. She is to be seen in office in a week. All questions were answered.
== END 2020-06-10 11:05 | disposition home or self-care (01) | DRG 784 ==
LOC: 4S1 06:42 → EDSTATUS 07:30 → 4N 12:29
PROC: M.PPTLD (2020-06-08 07:30)